=== PATIENT | female | born 1945 | race Caucasian/White ===

== ENCOUNTER → 2017-04-02 | Outpatient (CLI) | payer OTHER ==
[~2017-04-02] MED LIST: ALBU17IN2 INH; ALBU83IN INH; GABA600T PO; HYDR25TA6 PO; OMEP20CA3 PO; PRAM0.123 PO; TRAM50TA2 PO
[2017-04-02 09:16] LABS: CALCIUM LEVEL 9.8 MG/DL (8.8-10.2); CREATININE FOR GFR 1.19 MG/DL (0.55-1.02); GLOMERULAR FILTRATION RATE 47.5 (>39); POTASSIUM SERUM 3.6 MEQ/L (3.5-5.1)
--- NOTE | 2017-04-02 10:07 | ECGEPIP ---
Stationary ECG Study 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 LA conduction disturbance. Low voltages with incomplete Right bundle branch block and persistent S waves in V5 and V6. Body habitus versus pulmonary disease. Nonspecific ST/T-wave abnormalities. No prior tracing for comparison. Clinical correlation advised Electronically Signed On 04-02-2017 10:07:50 EDT by Candelario Oliveira
--- NOTE | 2017-04-02 15:21 | REP ---
HISTORY: Hypertension. COMPARISON: Multiple, the latest . Cardiomediastinal silhouette is unchanged. The heart is not enlarged. Interstitial fibrotic changes with basilar predominant, status quo. No acute patchy parenchymal opacities or pleural effusions have developed. There is no change in the osseous structures. IMPRESSION: Stable chronic changes. Signed by Swapnil Lee DO 04/03/2017 11:29 A
== END ==
LOC: M LAB 08:27
PROVIDERS: ATTEND Ophthalmology
DX: H25.12 Age-related nuclear cataract, left eye (principal); J45.909 Unspecified asthma, uncomplicated; I10 Essential (primary) hypertension; R94.31 Abnormal electrocardiogram [ECG] [EKG]

== ENCOUNTER 2017-04-12 07:58 | Day surgery (SDC) | payer MEDICARE ==
[~2017-04-12] VITALS: Ht 161.3 cm; Wt 86.2 kg
[~2017-04-12 07:58] MED LIST changes: +ACETYLCHOLINE OPHTH SOLN 1% 2ML (MIOCHOL-E) As Ordered ONE; +BALANCED SALT IRRIGATION SOLUTION 500ML BAG (FOR OR EYE MACHINE) As Ordered ONE; +DUOVISC (0.50ML VISCOAT/0.55ML PROVISC) OPHTH KIT As Ordered ONE; +LIDOCAINE 0.75%/EPINEPHRINE 0.025% IN BSS 1ML SYR INTRACAMERAL (OR ONLY) As Ordered ONE; +MIDAZOLAM INJ 2 MG/2 ML VIAL (J2250) As Ordered ONE; +OFLOXACIN 0.3 % (OCUFLOX) OPTH SOL 5ML OS ONE; +PHENYLEPHRINE 2.5% OPHTH SOL 2ML OS ONE; +POVIDONE-IODINE 5% OPHTH PREP SOL 30ML As Ordered ONE; +PROPARACAINE 0.5% OPHTH SOL 15ML OS ONE; +TETRACAINE 0.5% OPHTH SOLN 4ML As Ordered ONE; +TROPICAMIDE 1% OPHTH SOLN 2ML OS ONE; +fentaNYL 100 MCG/2 ML INJECTION (J3010) As Ordered ONE
[2017-04-12] MEDS ORDERED: LIDOCAINE 1% MDV 20ML VIAL SC PRN (08:15)
[2017-04-12] MEDS ORDERED: LR 1,000 ML IV ONE (08:15)
[2017-04-12] MEDS ORDERED: LIDOCAINE 4% INJ 5 ML AMP As Ordered ONE (08:30)
[2017-04-12] MEDS ORDERED: CEFUROXIME 1MG/0.1ML INTRACAMERAL INJ As Ordered ONE (08:47)
[2017-04-12 09:45] VITALS: BP 141/69
[2017-04-12] MEDS ORDERED: ONDANSETRON 4MG/2ML VIAL (J2405) IV PRN (09:45)
[2017-04-12] MEDS ORDERED: LR 1,000 ML IV SCH (09:45)
--- NOTE | 2017-04-13 06:55 | RO ---
DATE OF PROCEDURE: 04/12/2017 PREOPERATIVE DIAGNOSES: 1. Dense visually significant nuclear sclerotic cataract left eye. 2. Small pupil left eye. POSTOPERATIVE DIAGNOSES: 1. Dense visually significant nuclear sclerotic cataract left eye. 2. Small pupil left eye. PROCEDURE: Complex cataract extraction with insertion of intraocular lens left eye with use of Malyugin ring, implant power AU00T0, 20.0 diopter SURGEON: Duane Lanier DO PATROL LADY: ANESTHESIA: Local with monitored anesthesia care (MAC) COMPLICATIONS: None. POSTOPERATIVE CONDITION: Stable. INDICATION FOR SURGERY: Blurred vision left eye affecting patient's activities of daily living. DESCRIPTION OF PROCEDURE: The patient was seen in the preoperative area and properly identified. The correct operative eye was identified and marked. Attention was turned to that eye. The patient received optical antibiotics in the preoperative area. The patient then received topical dilating drops consisting of tropicamide and phenylephrine. The patient was then transferred to the operating room. The correct side was reidentified. The patient received topical anesthetics and antibiotics on the surface of the eye. The eye was prepped and draped in a sterile fashion. The upper and lower eyelids were isolated with Tegaderm tape, and the lids were held open with an adjustable speculum. Using a sideport blade, a paracentesis incision was made. Shugarcaine was then injected into the anterior chamber. Viscoelastic was then injected into the anterior chamber through the paracentesis. Using a 2.65 mm sharp-tipped keratome, the anterior chamber was entered via a temporal clear corneal incision. A 7mm Malyugin ring was placed. A continuous curvilinear capsulorrhexis was created with the aid of a 26-gauge cystotome and Utrata forceps. Hydrodissection was performed with BSS on a blunt cannula until the nucleus was freely mobile. The crystalline lens was phacoemulsified and aspirated. Additional cohesive viscoelastic was placed into the capsular bag to deepen it. A AU00T0, 20.0 Diopter lens was placed into the capsular bag and confirmed by visualizing the continuous curvilinear capsulorrhexis. The Malyugin ring was removed from the eye. Additional irrigation and aspiration was used to remove cortical material. The Malyugin ring was removed from the eye, and irrigation and aspiration was then used removing the remaining viscoelastic. The clear corneal incision was hydrated with BSS on a blunt cannula. The lens was well positioned. The incisions were then tested for leaks and found to be negative. The eye was then palpated for appropriate pressure and adjusted accordingly with BSS. Several drops of antibiotics and Iopidine were placed in the eye. The eyelid speculum was then carefully removed. A shield was placed over the eye. The patient tolerated the procedure well and was discharged to the recovery unit in a stable condition. JAZMYNE
== END 2017-04-12 10:00 | disposition home or self-care (01) ==
LOC: M SDC 07:58
PROVIDERS: ATTEND Ophthalmology
DX: H25.12 Age-related nuclear cataract, left eye (principal); H57.03 Miosis; I10 Essential (primary) hypertension; K21.9 Gastro-esophageal reflux disease without esophagitis; M54.9 Dorsalgia, unspecified; J44.9 Chronic obstructive pulmonary disease, unspecified; G47.30 Sleep apnea, unspecified; Z79.899 Other long term (current) drug therapy; Z79.82 Long term (current) use of aspirin; Z78.0 Asymptomatic menopausal state; Z72.0 Tobacco use
CPT/HCPCS: 66982; J2250; J3010; V2632

== ENCOUNTER 2018-09-23 16:19 | Emergency (ER) | payer MEDICARE ==
[~2018-09-23] VITALS: Ht 160 cm; Wt 94.5 kg
[~2018-09-23 16:19] MED LIST changes: -ACETYLCHOLINE OPHTH SOLN 1% 2ML (MIOCHOL-E) As Ordered ONE; -BALANCED SALT IRRIGATION SOLUTION 500ML BAG (FOR OR EYE MACHINE) As Ordered ONE; -DUOVISC (0.50ML VISCOAT/0.55ML PROVISC) OPHTH KIT As Ordered ONE; -GABA600T PO; +GABA600T4 PO; -LIDOCAINE 0.75%/EPINEPHRINE 0.025% IN BSS 1ML SYR INTRACAMERAL (OR ONLY) As Ordered ONE; -MIDAZOLAM INJ 2 MG/2 ML VIAL (J2250) As Ordered ONE; -OFLOXACIN 0.3 % (OCUFLOX) OPTH SOL 5ML OS ONE; -PHENYLEPHRINE 2.5% OPHTH SOL 2ML OS ONE; -POVIDONE-IODINE 5% OPHTH PREP SOL 30ML As Ordered ONE; -PRAM0.123 PO; +PRAM0.126 PO; -PROPARACAINE 0.5% OPHTH SOL 15ML OS ONE; -TETRACAINE 0.5% OPHTH SOLN 4ML As Ordered ONE; -TROPICAMIDE 1% OPHTH SOLN 2ML OS ONE; -fentaNYL 100 MCG/2 ML INJECTION (J3010) As Ordered ONE
[2018-09-23] MEDS ORDERED: NS 1,000 ML IV SCH (16:40)
[2018-09-23] MEDS ORDERED: methylPREDNISolone INJ 125 MG/2 ML VIAL (J2930) IV ONE (16:45)
--- NOTE | 2018-09-23 16:57 | REP ---
PORTABLE CHEST, ONE VIEW: HISTORY: Cough. COMPARISON: 04/02/2017 A diffuse increase in interstitial markings is present in the lungs consistent with chronic interstitial fibrosis. The heart is normal in size. The pulmonary vasculature is normal in appearance. IMPRESSION: Chronic interstitial fibrosis. Electronically Signed by Benny Soto MD 09/23/2018 04:59 P
[2018-09-23 17:11] LABS: BASO % 0.2 % (0.0-1.0); EOS # 0.1 10^3/uL (0.0-0.50); EOS % 0.3 % (0.0-3.0); HEMATOCRIT 43.9 % (36.0-47.0); LYMPH # 2.3 10^3/uL (1.5-4.5); LYMPH % 12.5 % (24.0-44.0); MEAN CORPUSCULAR HEMOGLOBIN 31.8 pg (27.0-33.0); MEAN CORPUSCULAR HGB CONC 31.9 g/dl (32.0-36.5); MEAN CORPUSCULAR VOLUME 99.8 fl (80.0-96.0); MONO # 1.2 10^3/uL (0.0-0.8); MONO % 6.7 % (0.0-5.0); NEUTROPHILS # 14.4 10^3/uL (1.8-7.7); NEUTROPHILS % 79.2 % (36.0-66.0); PLATELET COUNT, AUTOMATED 244 10^3/uL (150-450); WHITE BLOOD COUNT 18.2 10^3/uL (4.0-10.0)
[2018-09-23] MEDS: IPRATROPIUM 0.5MG/ALBUTEROL 2.5MG INH SOL UD 3ML (DUONEB)(J7620) NEB PRN ×2 (17:11→17:12)
[2018-09-23 17:12] LABS: ABG BASE EXCESS -0.2 (-2.0-2.0); ABG HCO3 25.5 MEQ/L (22.0-26.0); ABG O2 SATURATION 95.2 % (95.0-99.0); ABG PARTIAL PRESSURE CO2 45.6 mmHg (35.0-45.0); ABG PARTIAL PRESSURE O2 79.3 mmHg (75.0-100.0); ABG STANDARD HCO3 24.3 MEQ/L (22.0-26.0); ABG TOTAL CO2 26.9 MEQ/L (23.0-31.0); ABG pH (ARTERIAL) 7.366 UNITS (7.350-7.450)
[2018-09-23] MEDS ORDERED: LISI-538 PO (17:14)
[2018-09-23] MEDS ORDERED: FURO20TA2 PO (17:14)
[2018-09-23 17:24] LABS: INR 1.01; PROTHROMBIN TIME 13.4 SECONDS (12.1-14.4)
[2018-09-23] MEDS ORDERED: ONDANSETRON 4MG/2ML VIAL (J2405) IV ONE (17:30)
[2018-09-23 17:41] LABS: ALBUMIN 3.1 GM/DL (3.2-5.2); ALT/SGPT 16 U/L (12-78); BILIRUBIN,DIRECT 0.1 MG/DL (0.0-0.2); BILIRUBIN,TOTAL 0.3 MG/DL (0.2-1.0); BLOOD UREA NITROGEN 28 MG/DL (7-18); CALCIUM LEVEL 9.4 MG/DL (8.8-10.2); CARBON DIOXIDE LEVEL 26 MEQ/L (21-32); CHLORIDE LEVEL 107 MEQ/L (98-107); CPK CREATINE PHOSPHOKINASE 144 U/L (26-192); CREATININE FOR GFR 1.37 MG/DL (0.55-1.30); GLOMERULAR FILTRATION RATE 40.1 (>39); GLUCOSE, FASTING 95 MG/DL (70-100); MB/CK RELATIVE INDEX 9.86 (< OR =4); POTASSIUM SERUM 5.3 MEQ/L (3.5-5.1); SODIUM LEVEL 140 MEQ/L (136-145); TOTAL PROTEIN 6.7 GM/DL (6.4-8.2); TROPONIN I < 0.02 NG/ML (< 0.10)
[2018-09-23 17:51] LABS: INFLUENZA A AMPLIFICATION NEGATIVE (NEGATIVE); INFLUENZA B AMPLIFICATION NEGATIVE (NEGATIVE)
--- NOTE | 2018-09-23 19:04 | ECGEPIP ---
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
[2018-09-23] MEDS ORDERED: MOXIFLOXACIN 400 MG TAB PO ONE (19:45)
[2018-09-23 20:03] VITALS: BP 116/56
[2018-09-23] MEDS ORDERED: AVEL1TAB3 PO (20:45)
== END 2018-09-23 21:09 | disposition home or self-care (01) ==
LOC: M ED 16:19 → EDSEX 16:19 → EDBD 16:19 → EDUNIT# 16:19 → M ED 21:09
DX: J44.1 Chronic obstructive pulmonary disease with (acute) exacerbation (principal); R09.02 Hypoxemia; R94.31 Abnormal electrocardiogram [ECG] [EKG]; I10 Essential (primary) hypertension; K21.9 Gastro-esophageal reflux disease without esophagitis; G89.29 Other chronic pain; Z79.899 Other long term (current) drug therapy; Z87.891 Personal history of nicotine dependence
CPT/HCPCS: 36600; 71045; 80048; 80076; 82550; 82553; 82803; 84484; 85025; 85610; 87502; 93005; 93041; 94640; 96374; 99285; J2930

== ENCOUNTER 2018-10-10 05:38 | Inpatient (IN) | payer MEDICARE ==
[2018-10-09 14:40] VITALS: BP 95/53
[~2018-10-10 05:38] MED LIST changes: +AVEL1TAB3 PO; +FURO20TA2 PO; +LISI-538 PO
[2018-10-10 06:15] LABS: BASO % 0.4 % (0.0-1.0); EOS # 0.2 10^3/uL (0.0-0.50); EOS % 1.7 % (0.0-3.0); HEMATOCRIT 39.8 % (36.0-47.0); HEMOGLOBIN 12.5 g/dl (12.0-15.5); LYMPH # 1.8 10^3/uL (1.5-4.5); LYMPH % 17.2 % (24.0-44.0); MEAN CORPUSCULAR HEMOGLOBIN 32.2 pg (27.0-33.0); MEAN CORPUSCULAR HGB CONC 31.4 g/dl (32.0-36.5); MEAN CORPUSCULAR VOLUME 102.6 fl (80.0-96.0); MONO % 9.1 % (0.0-5.0); NEUTROPHILS # 7.6 10^3/uL (1.8-7.7); NEUTROPHILS % 71.1 % (36.0-66.0); PLATELET COUNT, AUTOMATED 207 10^3/uL (150-450); RED BLOOD COUNT 3.88 10^6/uL (4.00-5.40); WHITE BLOOD COUNT 10.7 10^3/uL (4.0-10.0)
[2018-10-10] MEDS ORDERED: ACETAMINOPHEN TAB 650MG DOSE (2X325MG) PO ONE (06:15)
[2018-10-10] MEDS ORDERED: NS 1,000 ML IV ONE ×3 (06:15→07:30)
[2018-10-10] MEDS ORDERED: PIPERACILLIN/TAZOBACTAM SOD 3.375 GM in D5W MINI-BAG PLUS 50 ML IV ONE (06:30)
[2018-10-10] MEDS ORDERED: IPRATROPIUM 0.5MG/ALBUTEROL 2.5MG INH SOL UD 3ML (DUONEB)(J7620) NEB ONE (06:30)
[2018-10-10 06:35] LABS: ALBUMIN 2.5 GM/DL (3.2-5.2); ALT/SGPT 17 U/L (12-78); BILIRUBIN,DIRECT 0.1 MG/DL (0.0-0.2); BILIRUBIN,TOTAL 0.4 MG/DL (0.2-1.0); BLOOD UREA NITROGEN 31 MG/DL (7-18); CALCIUM LEVEL 9.1 MG/DL (8.8-10.2); CARBON DIOXIDE LEVEL 27 MEQ/L (21-32); CHLORIDE LEVEL 104 MEQ/L (98-107); CPK CREATINE PHOSPHOKINASE 283 U/L (26-192); CREATININE FOR GFR 2.34 MG/DL (0.55-1.30); GLOMERULAR FILTRATION RATE 21.6 (>39); GLUCOSE, FASTING 133 MG/DL (70-100); MB/CK RELATIVE INDEX 1.13 (< OR =4); POTASSIUM SERUM 5.8 MEQ/L (3.5-5.1); SODIUM LEVEL 137 MEQ/L (136-145); TOTAL PROTEIN 6.2 GM/DL (6.4-8.2); TROPONIN I < 0.02 NG/ML (< 0.10)
--- NOTE | 2018-10-10 06:54 | REPVR ---
EXAM: CT Head Without Contrast EXAM DATE/TIME: 10/10/2018 6:07 AM CLINICAL HISTORY: 73 years old, female; Injury or trauma; Fall; Additional info: Altered mental status TECHNIQUE: Axial computed tomography images of the head/brain without contrast. All CT scans at this facility use at least one of these dose optimization techniques: automated exposure control; mA and/or kV adjustment per patient size (includes targeted exams where dose is matched to clinical indication); or iterative reconstruction. COMPARISON: No relevant prior studies available. FINDINGS: Brain: Normal. No hemorrhage. No significant white matter disease. No edema. Ventricles: Normal. No ventriculomegaly. Bones/joints: Unremarkable. No acute fracture. Sinuses: Visualized sinuses are unremarkable. No acute sinusitis. Mastoid air cells: Visualized mastoid air cells are unremarkable. No mastoid effusion. Soft tissues: Unremarkable. IMPRESSION: No acute intracranial abnormality. Electronically signed by: Randall Martinez On 10/10/2018 06:54:04 AM
--- NOTE | 2018-10-10 06:58 | REPVR ---
EXAM: CT Cervical Spine Without Contrast EXAM DATE/TIME: 10/10/2018 6:14 AM CLINICAL HISTORY: 73 years old, female; Injury or trauma; Fall; Initial encounter; Concussion /head injury; Additional info: Fall, ama TECHNIQUE: Axial computed tomography images of the cervical spine without intravenous contrast. All CT scans at this facility use at least one of these dose optimization techniques: automated exposure control; mA and/or kV adjustment per patient size (includes targeted exams where dose is matched to clinical indication); or iterative reconstruction. Coronal and sagittal reformatted images were created and reviewed. COMPARISON: No relevant prior studies available. FINDINGS: Vertebrae: There is C5-C6 and C6-C7 disc degenerative changes. There is multilevel facet arthrosis most severe on the left at C2-C3 through C5-C6 and on the right at C3-C4 through C5-C6. There is grade 1 anterolisthesis of C4 on C5. There is significant right C3-C4 and moderate C5-C6 and C6-C7 left neural foraminal narrowing. Discs/Spinal canal/Neural foramina: See Vertebrae Finding. Soft tissues: Unremarkable. Lungs: Lung apices are normal. IMPRESSION: No CT evidence of traumatic cervical spine injury. Electronically signed by: Randall Martinez On 10/10/2018 06:58:19 AM
[2018-10-10 08:21] LABS: ABG BASE EXCESS -4.5 (-2.0-2.0); ABG HCO3 22.9 MEQ/L (22.0-26.0); ABG O2 SATURATION 95.2 % (95.0-99.0); ABG PARTIAL PRESSURE CO2 53.3 mmHg (35.0-45.0); ABG PARTIAL PRESSURE O2 89.9 mmHg (75.0-100.0); ABG STANDARD HCO3 20.7 MEQ/L (22.0-26.0); ABG TOTAL CO2 24.5 MEQ/L (23.0-31.0); ABG pH (ARTERIAL) 7.251 UNITS (7.350-7.450)
--- NOTE | 2018-10-10 08:40 | REP ---
Portable chest x-ray: Single view. History: Altered mental status. Comparison study: September 23, 2018. Findings: There is a new linear density in the left perihilar region and another similar linear density in the right base consistent with discoid atelectasis. Interstitial markings are prominent diffusely consistent with fibrosis. No definite focal infiltrate is seen. Heart is not felt to be enlarged. There is no evidence of pleural effusion. There are two nodular opacities in the left apex, the largest of which measures 8 mm. These are not definitely visible on the April 02, 2017 prior chest x-ray. Impression: Bilateral plate-like atelectasis. Diffusely prominent interstitial markings consistent with fibrosis. Two small nodular opacities are seen in the left apex, largest 8 mm. Question of pulmonary nodule. Consider CT. Electronically Signed by Reid Flores MD 10/10/2018 01:34 P
--- NOTE | 2018-10-10 08:41 | REP ---
Bilateral hip: Four views. History: Injury in a fall. Findings: AP and frog-leg views of the right and left hip demonstrate moderate osteoarthritis. There is also greater trochanteric tendon insertion site spurring. Vascular calcification is noted. No fracture is seen. Femoral heads are smooth and rounded bilaterally. Impression: No fracture seen. Electronically Signed by Reid Flores MD 10/10/2018 01:34 P
[2018-10-10] MEDS ORDERED: VENTAER INH (08:47)
--- NOTE | 2018-10-10 10:03 | REP ---
CT chest without contrast: History: Sepsis. Abnormal chest x-ray. Rule out pneumonia. CT findings: There is segmental atelectasis in the right middle lobe with air bronchograms. There is a band of discoid atelectasis in the anterior segment of the left upper lobe. These linear atelectatic changes correspond with the radiographic findings. There is diffuse interstitial fibrosis pattern and emphysematous changes consistent with COPD. No evidence of parenchymal infiltrate. There is a nodular calcification adjacent to the inferior aspect of the left sternoclavicular joint which is felt to be responsible for one of the nodular opacities projecting at the left apex on the radiograph. This is 7 mm in diameter and has a benign appearance. There is no evidence of a significant pulmonary nodule. There is some mild pleuroparenchymal fibrosis in both lung apices. Degenerative changes are seen in the thoracic spine. Mitral annular calcification and coronary artery vascular calcification is noted. There are scattered normal-sized mediastinal lymph nodes. No pleural or pericardial effusion is seen. No adrenal mass is observed. There is some faintly calcific material layering in the dependent portion the gallbladder lumen suggesting gravel like gallstones. Impression: Evidence of COPD with mild diffuse interstitial fibrosis pattern. There are bands of discoid atelectasis in the right middle lobe and left upper lobe. No significant pulmonary nodule is seen. Possible gallstones. Electronically Signed by Reid Flores MD 10/10/2018 10:16 P
[2018-10-10] MEDS ORDERED: ONDANSETRON 4MG/2ML VIAL (J2405) IV PRN (10:30)
[2018-10-10] MEDS ORDERED: ACETAMINOPHEN TAB 650MG DOSE (2X325MG) PO PRN (10:30)
[2018-10-10] MEDS: NS 1,000 ML IV SCH ×2 (11:54→22:55)
[2018-10-10] MEDS: PIPERACILLIN/TAZOBACTAM SOD 3.375 GM in D5W MINI-BAG PLUS 50 ML IV SCH ×2 (13:00→18:49)
[2018-10-10] MEDS: HEPARIN SOD (PORCINE) 5000 UNITS/ML VIAL SC SCH ×2 (13:51→20:17)
[2018-10-10 15:05] LABS: MB/CK RELATIVE INDEX 1.8 (< OR =4); TROPONIN I 0.02 NG/ML (< 0.10)
[2018-10-10 16:40] VITALS: BP 107/57
--- NOTE | 2018-10-10 16:54 | HPEPDOC ---
[facility] Medical History & Physical Date of Admission Oct 10, 2018 History and Physical PRIMARY CARE PROVIDER: Odell Markham ATTENDING: Dr. Geo Sanon CHIEF COMPLAINT: Generalized weakness HISTORY OF PRESENT ILLNESS: This is a 73-year-old female past medical history of COPD, hypertension who presented about 2 weeks ago to the emergency department complaining of shortness of breath and cough and was prescribed Levaquin. Patient had apparently improved. The patient states over the past 2 days she has been having generalized weaknes s, fatigue, and family notes that she has been sleeping more. Patient denies any shortness of breath however has a productive cough. No nausea or vomiting. No diarrhea. No rashes. No headache or neck pain. No sore throat, nasal congestion, ear pain. In the ED, patient was found to have a fever 103, as well as noted to be hypotensive however she responded well to IV fluids. Patient was also started on Zosyn for likely a respiratory infection. The patient is alert and oriented 3 in the emergency department, with no focal deficits. PAST MEDICAL HISTORY: As per HPI PAST SURGICAL HISTORY: Appendectomy, carpal tunnel, tooth extraction SOCIAL HISTORY: History of 1 pack per day tobacco abuse his age of 15, quit 2 weeks ago. No ocular use. FAMILY HISTORY: Noncontributory ALLERGIES: Please see below. REVIEW OF SYSTEMS: HEENT: Denies sore throat/headache CARDIOVASCULAR: Denies chest pain/palpitations RESPIRATORY: Denies shortness of breath/cough GASTROINTESTINAL: denies nausea/vomiting GENITOURINARY: Denies dysuria/urinary urgency. MUSCULOSKELETAL: Denies myalgias/arthralgias NEUROLOGICAL: Denies any focal weakness HOME MEDICATIONS: Please see below. PHYSICAL EXAMINATION: Vitals: (see below) General: No acute distress, laying comfortably in bed. HEENT: Moist mucous membranes. Neck: No JVD or lymphadenopathy. No neck pain. Full range of motion. Cardiac: RRR, No murmurs Pulm: Diminished breath sounds at the bases b/l. No wheezing. + rhonchi Abd: NT/ND + BS. Obese Ext: No edema or cyanosis Neuro: Strength 5/5 BUE and BLE. CN 2-12 intact. F to N intact Negative pronator drift. Negative Babinki. Sensation to fine touch intact. Alert and oriented 3. No nuchal rigidity. LABORATORY DATA: See below. IMAGING: Chest x-ray on 10/10/18 CT chest on 10/10/18 Impression: Evidence of COPD with mild diffuse interstitial fibrosis pattern. There are bands of discoid atelectasis in the right middle lobe and left upper lobe. No significant pulmonary nodule is seen. Possible gallstones. CT C-spine on 10/10/18 IMPRESSION: No CT evidence of traumatic cervical spine injury. Bilateral hip x-ray 10/10/18 Impression: No fracture seen. ASSESSMENT/PLAN: 1. SIRS and hypotension with suspected respiratory infection. ? Viral. Patient does have productive cough, with chronic fibrosis. Patient was started on Zosyn, and responded well to IV fluids. We'll continue antibiotics, send for sputum culture, follow-up on blood cultures. Respiratory panel pending. UA negative. Will monitor in PCU. Patient has no other source of infection. 2. Acute kidney injury likely secondary to hypotension in the setting of lisinopril. Hold lisinopril for now. Continue IV fluids. Renal ultrasound pending. If no improvement, we will consults nephrology. 3. History of hypertension. Hold BP meds for now as patient is hypotensive. 4. Hyperkalemia in the setting of acute kidney injury. We will repeat BMP and monitor. If no improvement on repeat labs, we will give Valtessa. 5. History of COPD on 2-3L home O2. Will as needed. Will need close outpatient follow-up. 6. History of tobacco abuse quit 2 weeks ago. Counseled on continuing to stop smoking after she improves. DVT prophylaxis heparin subcutaneous Overall prognosis guarded. Vital Signs Vital Signs Date Time Temp Pulse Resp B/P (MAP) Pulse Ox O2 Delivery O2 Flow Rate FiO2 10/10/18 15:00 4.0 10/10/18 14:45 98.9 87 21 108/65 (79) 94 Nasal Cannula Laboratory Data Labs 24H Laboratory Tests 2 10/10/18 06:03: Immature Granulocyte % (Auto) 0.5, White Blood Count 10.7H, Red Blood Count 3.88L, Hemoglobin 12.5, Hematocrit 39.8, Mean Corpuscular Volume 102.6H, Mean Corpuscular Hemoglobin 32.2, Mean Corpuscular Hemoglobin Concent 31.4L, Red Cell Distribution Width 15.6H, Platelet Count 207, Neutrophils (%) (Auto) 71.1H, Lymphocytes (%) (Auto) 17.2L, Monocytes (%) (Auto) 9.1H, Eosinophils (%) (Auto) 1.7, Basophils (%) (Auto) 0.4, Neutrophils # (Auto) 7.6, Lymphocytes # (Auto) 1.8, Monocytes # (Auto) 1.0H, Eosinophils # (Auto) 0.2, Basophils # (Auto) 0.0, Nucleated Red Blood Cells % (auto) 0.0, Urine Color YELLOW, Urine Appearance CLEAR, Urine pH 5.0, Urine Specific Berry 1.012, Urine Protein 1+H, Urine Glucose (UA) NEGATIVE, Urine Ketones NEGATIVE, Urine Blood 1+H, Urine Nitrite NEGATIVE, Urine Bilirubin NEGATIVE, Urine Urobilinogen 0.2, Urine Leukocyte Esterase NEGATIVE, Urine WBC (Auto) 1, Urine RBC (Auto) 4H, Urine Hyaline Casts (Auto) 13, Urine Bacteria (Auto) NEGATIVE, Urine Squamous Epithelial Cells 1, Urine Sperm (Auto) , Anion Gap 6L, Glomerular Filtration Rate 21.6L, Lactic Acid Level 1.9, Calcium Level 9.1, Aspartate Amino Transf (AST/SGOT) 27, Alanine Aminotransferase (ALT/SGPT) 17, Alkaline Phosphatase 70, Total Bilirubin 0.4, Direct Bilirubin 0.1, Ammonia 16, Total Creatine Kinase 283H, Creatine Kinase MB 3.0, Creatine Kinase MB Relative Index 1.13, Troponin I < 0.02, C-Reactive Prote in, Quantitative 16.10H, Total Protein 6.2L, Albumin 2.5L, Albumin/Globulin Ratio 0.68L, Thyroid Stimulating Hormone (TSH) 1.450 10/10/18 08:08: Blood Gas Bicarbonate Standard 20.7L, Arterial Blood pH 7.251L, Arterial Blood Partial Pressure CO2 53.3H, Arterial Blood Partial Pressure O2 89.9, Arterial Blood Total CO2 24.5, Arterial Blood HCO3 22.9, Arterial Blood Base Excess -4. 5L, Arterial Blood Oxygen Saturation 95.2 10/10/18 14:15: Total Creatine Kinase 228H, Creatine Kinase MB 4.0H, Creatine Kinase MB Relative Index 1.80, Troponin I 0.02 CBC/BMP Laboratory Tests 10/10/18 06:03 Red Blood Count 3.88 L, Mean Corpuscular Volume 102.6 H, Mean Corpuscular Hemoglobin 32.2, Mean Corpuscular Hemoglobin Concent 31.4 L, Red Cell Distribu tion Width 15.6 H, Neutrophils (%) (Auto) 71.1 H, Lymphocytes (%) (Auto) 17.2 L, Monocytes (%) (Auto) 9.1 H, Eosinophils (%) (Auto) 1.7, Basophils (%) (Auto) 0.4, Neutrophils # (Auto) 7.6, Lymphocytes # (Auto) 1.8, Monocytes # (Auto) 1.0 H, Eosinophils # (Auto) 0.2, Basophils # (Auto) 0.0 Microbiology Microbiology 10/10/18 Blood Culture, Received Pending 10/10/18 Blood Culture, Received Pending 10/10/18 MRSA Screen, Received Pending 10/10/18 Respiratory Virus Panel (PCR) (CELINA), Received Pending Home Medications Scheduled Gabapentin (Gabapentin) 600 Mg Tab, 600 MG PO BID Lisinopril (Lisinopril) 20 Mg Tab, 20 MG PO DAILY Pramipexole Dihydrochloride (Pramipexole Dihydrochlori) 0.125 Mg Tab, 0.125 MG PO QHS Scheduled PRN Albuterol Sulfate (Albuterol Sulfate) 2.5 Mg/3 Ml Nebu, 2.5 MG INH Q6H PRN for SHORTNESS OF BREATH Albuterol Sulfate (Ventolin Hfa) 108 Mcg/Act Aer, 2 PUFFS INH Q4H PRN for SHORTNESS OF BREATH Omeprazole (Omeprazole) 20 Mg Cap, 20 MG PO DAILY PRN for INDIGESTION Tramadol HCl (Tramadol HCl) 50 Mg Tab, 50 MG PO QID PRN for PAIN Allergies Coded Allergies: No Known Allergies (Unverified , 04/02/17) GEO SANON MD Oct 10, 2018 16:54
--- NOTE | 2018-10-10 18:18 | REP ---
RENAL ULTRASOUND:HISTORY: Acute kidney injury. The kidneys are normal in echogenicity. The right kidney measures 5.3 cm in transverse x 4 cm in AP x 11.1 cm in cephalocaudal dimensions. The left kidney measures 4.9 cm in transverse x 5.1 cm in AP x 10 cm in cephalocaudal dimensions. A 2.7 cm cyst is present in the right kidney. Two cysts 1.6 and 4.1 cm are present in the left kidney. There is no hydronephrosis or mass. The urinary bladder is not distended. IMPRESSION:Bilateral renal cysts. Electronically Signed by Benny Soto MD 10/10/2018 06:34 P
[2018-10-10 18:40] VITALS: BP 115/57
[2018-10-10 20:00] VITALS: BP_SYST 120; BP_SYST 150; BP_DIAS 72
--- NOTE | 2018-10-10 20:52 | ECGEPIP ---
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 Order Number: [id number] Reading MD: Do Hammond Measurements Intervals [place] Rate: 106 P: 25 [place]: 134 QRS: 64 QRSD: 89 T: 61 QT: 273 QTc: 363 Interpretive Statements SINUS TACHYCARDIA POSSIBLE RIGHT VENTRICULAR CONDUCTION DELAY ABNORMAL RHYTHM ECG INCREASED RATE 09/23/18 Electronically Signed On 10-10-2018 20:52:36 EST by Do Hammond
[2018-10-10 22:00] VITALS: BP_SYST 126; BP_SYST 159; BP_DIAS 72
--- NOTE | 2018-10-10 22:48 | ECHO ---
DATE OF PROCEDURE: 10/10/2018 REFERRING PHYSICIAN: Dr. Geo Sanon INDICATION: Abnormal ECG. HEIGHT: 160 cm WEIGHT: 96 kg 2D MEASUREMENTS: Left atrium: 3.7 cm Aortic root: 3.1 cm Ventricular septum: 1.31 cm Posterior wall: 1.05 cm Left ventricle diastole: 4.7 cm LVOT: 2.1 cm Inferior vena cava: 1.7 cm with normal respiratory variation. DOPPLER MEASUREMENTS: Aortic valve velocity: 225 cm/s LVOT velocity: 116 cm/s LVOT VTI: 21.8 cm Mitral E velocity: 114 cm/s Mitral A velocity: 114 cm/s Mitral deceleration time: 236 ms Very mild tricuspid regurgitation. Estimated right ventricle systolic pressure: 32-37 mmHg assuming a right atrial pressure of 5-10 mmHg. Pulmonary artery systolic pressure: 43 mmHg. MITRAL ANNULAR TISSUE DOPPLER: E prime lateral: 7.3 cm/s DESCRIPTION: Rhythm was sinus. This was a moderately technically difficult echocardiogram. No pericardial effusion. This was a 2D, M-mode, color flow Doppler and pulse wave Doppler examination and included mitral annular tissue Doppler. CONCLUSIONS: 1. Mild focal hypertrophy of the basal anterior ventricular septum. Normal regional left ventricular (LV) wall motion and wall thickening. Normal LV systolic function. Left ventricular ejection fraction (LVEF) 70% by visual estimate. Grade 1 LV diastolic dysfunction (impaired relaxation filling pattern). 2. Moderate aortic valve sclerosis of a 3-cusp aortic valve. No aortic stenosis or regurgitation. 3. Moderate mitral annular calcification. No mitral stenosis or regurgitation. 4. Suggestive of moderate elevation of pulmonary artery systolic pressure versus mild elevation of estimated right ventricle systolic pressure. Normal right ventricle size. Mild right ventricle hypertrophy. Normal right ventricle systolic function. 5. Normal left and right atrial size.
[2018-10-11] VITALS (8 sets, daily range): BP systolic 114–145; BP diastolic 55–80
[2018-10-11] MEDS: PIPERACILLIN/TAZOBACTAM SOD 3.375 GM in D5W MINI-BAG PLUS 50 ML IV SCH ×4 (00:38→18:40)
[2018-10-11] MEDS: HEPARIN SOD (PORCINE) 5000 UNITS/ML VIAL SC SCH ×3 (05:31→21:11)
[2018-10-11 05:43] LABS: BASO % 0.3 % (0.0-1.0); EOS # 0.2 10^3/uL (0.0-0.50); EOS % 3.3 % (0.0-3.0); HEMATOCRIT 32.6 % (36.0-47.0); HEMOGLOBIN 10.3 g/dl (12.0-15.5); LYMPH # 1.5 10^3/uL (1.5-4.5); MEAN CORPUSCULAR HEMOGLOBIN 32.1 pg (27.0-33.0); MEAN CORPUSCULAR HGB CONC 31.6 g/dl (32.0-36.5); MEAN CORPUSCULAR VOLUME 101.6 fl (80.0-96.0); MONO # 0.7 10^3/uL (0.0-0.8); MONO % 9.6 % (0.0-5.0); NEUTROPHILS # 4.9 10^3/uL (1.8-7.7); NEUTROPHILS % 66.5 % (36.0-66.0); PLATELET COUNT, AUTOMATED 186 10^3/uL (150-450); RED BLOOD COUNT 3.21 10^6/uL (4.00-5.40); WHITE BLOOD COUNT 7.3 10^3/uL (4.0-10.0)
[2018-10-11 06:12] LABS: ALBUMIN 2.1 GM/DL (3.2-5.2); BILIRUBIN,TOTAL 0.3 MG/DL (0.2-1.0); CALCIUM LEVEL 8.6 MG/DL (8.8-10.2); CREATININE FOR GFR 1.56 MG/DL (0.55-1.30); GLOMERULAR FILTRATION RATE 34.5 (>39); MAGNESIUM LEVEL 1.2 MG/DL (1.8-2.4); POTASSIUM SERUM 5.1 MEQ/L (3.5-5.1); TOTAL PROTEIN 5.8 GM/DL (6.4-8.2)
[2018-10-11 08:15] LABS: C REACTIVE PROTEIN QUANTITATIV 11.5 MG/DL (0.00-0.30)
[2018-10-11] MEDS: MAG SULF 1GM/100ML (MAG RUN) 1 GM in APPROPRIATE DILUENT 1 EA IV SCH ×2 (09:08→10:12)
[2018-10-11 13:28] LABS: FOLATE 6.8 NG/ML (>5.4)
[2018-10-11 14:35] LABS: ALBUMIN 2.1 GM/DL (3.2-5.2); BILIRUBIN,TOTAL 0.2 MG/DL (0.2-1.0); CALCIUM LEVEL 8.9 MG/DL (8.8-10.2); CREATININE FOR GFR 1.42 MG/DL (0.55-1.30); GLOMERULAR FILTRATION RATE 38.5 (>39); POTASSIUM SERUM 4.9 MEQ/L (3.5-5.1); TOTAL PROTEIN 5.8 GM/DL (6.4-8.2)
--- NOTE | 2018-10-11 16:03 | IPNPDOC ---
Text Note Date of Service The patient was seen on 10/11/18. NOTE Subjective: Patient feels well today. Has a mild productive cough. No nausea or vomiting. No abdominal pain. No complaints. No chest pain or shortness of breath. PHYSICAL EXAMINATION: Vitals: (see below) General: No acute distress, laying comfortably in bed. HEENT: Moist mucous membranes. Neck: No JVD or lymphadenopathy. No neck pain. Full range of motion. Cardiac: RRR, No murmurs Pulm: Diminished breath sounds at the bases b/l. No wheezing. + rhonchi Abd: NT/ND + BS. Obese Ext: No edema or cyanosis Neuro: Strength 5/5 BUE and BLE. CN 2-12 intact. F to N intact Negative pronator drift. Negative Babinki. Sensation to fine touch intact. Alert and oriented 3. No nuchal rigidity. LABORATORY DATA: See below. IMAGING: CT chest on 10/10/18 Impression: Evidence of COPD with mild diffuse interstitial fibrosis pattern. There are bands of discoid atelectasis in the right middle lobe and left upper lobe. No significant pulmonary nodule is seen. Possible gallstones. CT C-spine on 10/10/18 IMPRESSION: No CT evidence of traumatic cervical spine injury. Bilateral hip x-ray 10/10/18 Impression: No fracture seen. ASSESSMENT/PLAN: 1. SIRS and hypotension with suspected respiratory infection. ? Viral. Patient does have productive cough, with chronic fibrosis. Patient was started on Zosyn, and responded well to IV fluids. We'll continue antibiotics, send for sputum culture, follow-up on blood cultures. Respiratory panel pending. UA negative. Will monitor in PCU. Patient has no other source of infection. Blood pressure has improved. 2. Acute kidney injury likely secondary to hypotension in the setting of lisinopril. Improved. Hold lisinopril for now. Continue IV fluids. Renal ultrasound with no hydronephrosis. Avoid nephrotoxins. 3. History of hypertension. Hold BP meds for now. 4. Hyperkalemia in the setting of acute kidney injury. Improved. Likely sec ondary to acute kidney injury and hypotension. 5. History of COPD on 2-3L home O2. Will as needed. Will need close outpatient follow-up. 6. History of tobacco abuse quit 2 weeks ago. Counseled on continuing to stop smoking after she improves. DVT prophylaxis heparin subcutaneous Overall prognosis guarded. Physical therapy consulted. VS,Arcadiobone, I+O VS, Arcadiobone, I+O Laboratory Tests 10/11/18 05:15 Red Blood Count 3.21 L, Mean Corpuscular Volume 101.6 H, Mean Corpuscular Hemoglobin 32.1, Mean Corpuscular Hemoglobin Concent 31.6 L, Red Cell Distri bution Width 15.5 H, Neutrophils (%) (Auto) 66.5 H, Lymphocytes (%) (Auto) 20.0 L, Monocytes (%) (Auto) 9.6 H, Eosinophils (%) (Auto) 3.3 H, Basophils (%) (Auto) 0.3, Neutrophils # (Auto) 4.9, Lymphocytes # (Auto) 1.5, Monocytes # (Auto) 0.7, Eosinophils # (Auto) 0.2, Basophils # (Auto) 0.0, Calcium Level 8.6 L, Aspartate Amino Transf (AST/SGOT) 24, Alanine Aminotransferase (ALT/SGPT) 15, Alkaline Phosphatase 57, Total Bilirubin 0.3, Total Protein 5.8 L, Albumin 2.1 L 10/11/18 13:48 Calcium Level 8.9, Aspartate Amino Transf (AST/SGOT) 21, Alanine Aminotransferase (ALT/SGPT) 15, Alkaline Phosphatase 54, Total Bilirubin 0.2, Total Protein 5.8 L, Albumin 2.1 L Vital Signs Date Time Temp Pulse Resp B/P (MAP) Pulse Ox O2 Delivery O2 Flow Rate FiO2 10/11/18 12:00 97.5 74 20 118/61 (80) 96 3.0 10/10/18 14:45 Nasal Cannula I&O- Last 24 Hours up to 6 AM 10/11/18 06:00 Intake Total 3530 ml Output Total 575 ml Balance 2955 ml BENITO EDWARDS MD Oct 11, 2018 16:03
[2018-10-12] MEDS: PIPERACILLIN/TAZOBACTAM SOD 3.375 GM in D5W MINI-BAG PLUS 50 ML IV SCH ×2 (01:24→06:07)
[2018-10-12 03:52] VITALS: BP 145/63
[2018-10-12 05:36] LABS: BASO % 0.3 % (0.0-1.0); EOS # 0.3 10^3/uL (0.0-0.50); EOS % 3.6 % (0.0-3.0); HEMATOCRIT 34.3 % (36.0-47.0); HEMOGLOBIN 10.6 g/dl (12.0-15.5); LYMPH # 1.7 10^3/uL (1.5-4.5); LYMPH % 24.7 % (24.0-44.0); MEAN CORPUSCULAR HEMOGLOBIN 31.5 pg (27.0-33.0); MEAN CORPUSCULAR HGB CONC 30.9 g/dl (32.0-36.5); MEAN CORPUSCULAR VOLUME 102.1 fl (80.0-96.0); MONO # 0.6 10^3/uL (0.0-0.8); MONO % 8.6 % (0.0-5.0); NEUTROPHILS # 4.3 10^3/uL (1.8-7.7); NEUTROPHILS % 62.2 % (36.0-66.0); PLATELET COUNT, AUTOMATED 202 10^3/uL (150-450); RED BLOOD COUNT 3.36 10^6/uL (4.00-5.40); WHITE BLOOD COUNT 6.9 10^3/uL (4.0-10.0)
[2018-10-12 06:05] LABS: ALBUMIN 2.2 GM/DL (3.2-5.2); BILIRUBIN,TOTAL 0.3 MG/DL (0.2-1.0); CALCIUM LEVEL 9.1 MG/DL (8.8-10.2); CREATININE FOR GFR 1.22 MG/DL (0.55-1.30); GLOMERULAR FILTRATION RATE 45.9 (>39); MAGNESIUM LEVEL 1.5 MG/DL (1.8-2.4)
[2018-10-12] MEDS: HEPARIN SOD (PORCINE) 5000 UNITS/ML VIAL SC SCH (06:07)
[2018-10-12 07:58] LABS: C REACTIVE PROTEIN QUANTITATIV 8.2 MG/DL (0.00-0.30)
[2018-10-12 08:00] VITALS: BP 135/75
[2018-10-12] MEDS ORDERED: DOXY100T16 PO (11:32)
[2018-10-12] MEDS ORDERED: MAG SULF 1GM/100ML (MAG RUN) 1 GM in APPROPRIATE DILUENT 1 EA IV ONE (12:00)
--- NOTE | 2018-10-12 15:46 | DS.PDOC ---
Discharge Summary General Date of Admission Oct 10, 2018 at 10:25 Date of Discharge 10/12/18 Attending Physician: BENITO EDWARDS MD Discharge Summary PROCEDURES PERFORMED DURING STAY: None. ADMITTING/DISCHARGE DIAGNOSES: 1. SIRS and hypotension with suspected respiratory infection. ? Viral. Blood cultures negative. Respiratory panel negative. UA negative. 2. Acute kidney injury likely secondary to hypotension in the setting of lisinopril. Improved. s/p IV fluids. Renal ultrasound with no hydronephrosis. Avoid nephrotoxins. 3. History of hypertension. stable. 4. Hyperkalemia in the setting of acute kidney injury. Improved. Likely secondary to acute kidney injury and hypotension. Hold ACEi 5. History of COPD on 2-3L home O2. Will as needed. Will need close outpatient follow-up. 6. History of tobacco abuse quit 2 weeks ago. Counseled on continuing to stop smoking after she improves. COMPLICATIONS/CHIEF COMPLAINT: Generalized weakness HISTORY OF PRESENT ILLNESS/HOSPITAL COURSE: This is a 73-year-old female past medical history of COPD, hypertension who presented about 2 weeks ago to the emergency department complaining of shortness of breath and cough and was prescribed Levaquin. Patient had apparently improved. The patient states over the past 2 days she has been having generalized weakness, fatigue, and family notes that she has been sleeping more. Patient denies any shortness of breath however has a productive cough. No nausea or vomiting. No diarrhea. No rashes. No headache or neck pain. No sore throat, nasal congestion, ear pain. In the ED, patient was found to have a fever 103, as well as noted to be hypotensive however she responded well to IV fluids. Patient was also started on Zosyn for likely a respiratory infection. The patient is alert and oriented 3 in the emergency department, with no focal deficits. Over course of hospitalization, pt significantly improved. She was afebrile, tolerating diet. Pt passed pt, remained hemodynamically stable, and will be d/c home on PO doxy to complete course. DISCHARGE MEDICATIONS: Please see below. ALLERGIES: Please see below. PHYSICAL EXAMINATION ON DISCHARGE: Vitals: (see below) General: No acute distress, laying comfortably in bed. HEENT: Moist mucous membranes. Neck: No JVD or lymphadenopathy. No neck pain. Full range of motion. Cardiac: RRR, No murmurs Pulm: Diminished breath sounds at the bases b/l. No wheezing. + rhonchi Abd: NT/ND + BS. Obese Ext: No edema or cyanosis Neuro: Strength 5/5 BUE and BLE. CN 2-12 intact. F to N intact Negative pronator drift. Negative Babinki. Sensation to fine touch intact. Alert and oriented 3. LABORATORY DATA: Please see below. IMAGING: CT chest on 10/10/18 Impression: Evidence of COPD with mild diffuse interstitial fibrosis pattern. There are bands of discoid atelectasis in the right middle lobe and left upper lobe. No significant pulmonary nodule is seen. Possible gallstones. CT C-spine on 10/10/18 IMPRESSION: No CT evidence of traumatic cervical spine injury. Bilateral hip x-ray 10/10/18 Impression: No fracture seen. PROGNOSIS: Fair ACTIVITY: As tolerated. DIET: Low Na DISCHARGE PLAN/DISPOSITION: Home DISCHARGE INSTRUCTIONS: 1. F/u with PCP in 1 week. Return to ED if symptoms worsen. DISCHARGE CONDITION: Stable. TIME SPENT ON DISCHARGE: Greater than 30 minutes. Vital Signs/I&Os Vital Signs Date Time Temp Pulse Resp B/P (MAP) Pulse Ox O2 Delivery O2 Flow Rate FiO2 10/12/18 12:00 2.0 10/12/18 10:14 94 10/12/18 08:00 97.7 84 20 135/75 (95) 10/10/18 14:45 Nasal Cannula I&O- Last 24 Hours up to 6 AM 10/12/18 06:00 Intake Total 1020 ml Output Total 2100 ml Balance -1080 ml Laboratory Data Labs 24H Laboratory Tests 2 10/12/18 04:43: Immature Granulocyte % (Auto) 0.6, White Blood Count 6.9, Red Blood Count 3.36L, Hemoglobin 10.6L, Hematocrit 34.3L, Mean Corpuscular Volume 102.1H, Mean Corpuscular Hemoglobin 31.5, Mean Corpuscular Hemoglobin Concent 30.9L, Red Cell Distribution Width 15.3H, Platelet Count 202, Neutrophils (%) (Auto) 62.2, L ymphocytes (%) (Auto) 24.7, Monocytes (%) (Auto) 8.6H, Eosinophils (%) (Auto) 3.6H, Basophils (%) (Auto) 0.3, Neutrophils # (Auto) 4.3, Lymphocytes # (Auto) 1.7, Monocytes # (Auto) 0.6, Eosinophils # (Auto) 0.3, Basophils # (Auto) 0.0, Nucleated Red Blood Cells % (auto) 0.0, Anion Gap 3L, Glomerular Filtration Rate 45.9, Blood Urea Nitrogen 10, Creatinine 1.22, Sodium Level 140, Potassium Level 5.0, Chloride Level 109H, Carbon Dioxide Level 28, Calcium Level 9.1, Aspartate Amino Transf (AST/SGOT) 23, Alanine Aminotransferase (ALT/SGPT) 16, Alkaline Phosphatase 58, Total Bilirubin 0.3, Total Protein 6.0L, Albumin 2.2L, Magnesium Level 1.5L, C-Reactive Protein, Quantitative 8.20H, Albumin/Globulin Ratio 0.58L CBC/BMP Laboratory Tests 10/12/18 04:43 Red Blood Count 3.36 L, Mean Corpuscular Volume 102.1 H, Mean Corpuscular Hemoglobin 31.5, Mean Corpuscular Hemoglobin Concent 30.9 L, Red Cell Distribution Width 15.3 H, Neutrophils (%) (Auto) 62.2, Lymphocytes (%) (Auto) 24.7, Monocytes (%) (Auto) 8.6 H, Eosinophils (%) (Auto) 3.6 H, Basophils (%) (Auto) 0.3, Neutrophils # (Auto) 4.3, Lymphocytes # (Auto) 1.7, Monocytes # (Auto) 0.6, Eosinophils # (Auto) 0.3, Basophils # (Auto) 0.0, Calcium Level 9.1, Aspartate Amino Transf (AST/SGOT) 23, Alanine Aminotransferase (ALT/SGPT) 16, Alkaline Phosphatase 58, Total Bilirubin 0.3, Total Protein 6.0 L, Albumin 2.2 L Microbiology Microbiology 10/10/18 Blood Culture - Preliminary, Resulted No Growth after 48 hours. All Specime... 10/10/18 Blood Culture - Preliminary, Resulted No Growth after 48 hours. All Specime... 10/10/18 MRSA Screen - Final, Complete Staph.aureus Methicillin Resis 10/10/18 Respiratory Virus Panel (PCR) ([facility]) - Final, Complete Discharge Medications Scheduled Doxycycline Monohydrate (Doxycycline Monohydrate) 100 Mg Tab, 1 TAB PO BID Gabapentin (Gabapentin) 600 Mg Tab, 600 MG PO BID, (Reported) Pramipexole Dihydrochloride (Pramipexole Dihydrochlori) 0.125 Mg Tab, 0.125 MG PO QHS, (Reported) Scheduled PRN Albuterol Sulfate (Albuterol Sulfate) 2.5 Mg/3 Ml Nebu, 2.5 MG INH Q6H PRN for SHORTNESS OF BREATH, (Reported) Albuterol Sulfate (Ventolin Hfa) 108 Mcg/Act Aer, 2 PUFFS INH Q4H PRN for SHORTNESS OF BREATH, (Reported) Omeprazole (Omeprazole) 20 Mg Cap, 20 MG PO DAILY PRN for INDIGESTION, (Reported) Tramadol HCl (Tramadol HCl) 50 Mg Tab, 50 MG PO QID PRN for PAIN, (Reported) Allergies Coded Allergies: No Known Allergies (Unverified , 04/02/17) BENITO EDWARDS MD Oct 12, 2018 15:46
== END 2018-10-12 13:20 | disposition home or self-care (01) | DRG 683 ==
LOC: M ED 05:38 → M ED INP 10:25 → EEVIPCON 10:25 → M PCU 14:36
PROVIDERS: ADMIT Internal Medicine; ATTEND Internal Medicine
DX: N17.9 Acute kidney failure, unspecified (principal); R65.10 Systemic inflammatory response syndrome (SIRS) of non-infectious origin without acute organ dysfunction; J44.9 Chronic obstructive pulmonary disease, unspecified; I10 Essential (primary) hypertension; Z90.49 Acquired absence of other specified parts of digestive tract; Z87.891 Personal history of nicotine dependence; J84.10 Pulmonary fibrosis, unspecified; I95.9 Hypotension, unspecified; E87.5 Hyperkalemia; Z99.81 Dependence on supplemental oxygen; Z79.899 Other long term (current) drug therapy